=== PATIENT | male | born 1965 | race Caucasian/White ===

== ENCOUNTER 2017-05-01 09:19 | Emergency (ER) | payer MEDICAID ==
[~2017-05-01] VITALS: Ht 175.3 cm; Wt 89.0 kg
[~2017-05-01 09:19] MED LIST: NAPH15DR OP; OPTI5OP6 BOTH EYES
[2017-05-01 09:22] VITALS: Ht 175.3 cm; Wt 89.0 kg
[2017-05-01] MEDS ORDERED: FLUORESCEIN STRIP RIGHT EYE ONE (10:00)
[2017-05-01] MEDS ORDERED: TETRACAINE 0.5% 4 ML OPH RIGHT EYE ONE (10:00)
[2017-05-01] MEDS ORDERED: POLY10DR19 RIGHT EYE (10:34)
--- NOTE | 2017-05-01 10:37 | ERD ---
ER Documentation Chief Complaint Date/Time DATE: 05/01/17 TIME: 10:35 Chief Complaint right eye posible fb, has pain, redness HPI This a 51-year-old male presents to the emergency department today for right eye pain and redness and feeling like something is in his eye. Patient states this started yesterday. States he felt like he got dust or trash in his eye and has been bothering since that time. States his looked at it and thought there was something in his eye. Denies any headache, blurred vision, dizziness or vision loss. ROS All systems reviewed and are negative except as per history of present illness. Medications Home Meds Active Scripts Polymyxin B Sulfate-TMP* (Polymyxin B-TMP Eye Drops*) 10 Ml Drops, 1 DROP RIGHT EYE QID for 7 Days, EA Prov:LESTER SMITH PA-C 05/01/17 Azelastine Hcl (Optivar 0.05% Oph (6ml)) 0.05%-6 Ml Opht, 1 DROP BOTH EYES BID, #1 EACH Prov:JULIO GARCIA DO 11/13/15 Naphazoline Hcl/Phenir Mal (Naphcon-A Eye Drops) 15 Ml Drops, 1 DROP OP QID, #1 BOTTLE Prov:JULIO GARCIA DO 11/13/15 Allergies Allergies: Coded Allergies: No Known Allergy (Unverified , 05/01/17) PMhx/Soc Medical and Surgical Hx: pt denies Medical Hx, pt denies Surgical Hx History of Surgery: No Anesthesia Reaction: No Hx Neurological Disorder: No Hx Respiratory Disorders: No Hx Cardiac Disorders: No Hx Psychiatric Problems: No Hx Miscellaneous Medical Probl: Yes (anxiety) Hx Alcohol Use: No Hx Substance Use: No Hx Tobacco Use: No Smoking Status: Never smoker Physical Exam Vitals Vital Signs Date Time Temp Pulse Resp B/P Pulse Ox O2 Delivery O2 Flow Rate FiO2 05/01/17 09:22 98.1 76 18 132/84 99 Physical Exam Const: No acute distress Head: Atraumatic Eyes: Bilateral conjunctival erythema right eye greater than left. Evidence of bilateral pterygium. PERRLA. EOM intact ENT: Normal External Ears, Nose and Mouth. Neck: Full range of motion..~ No meningismus. Resp: Clear to auscultation bilaterally Cardio: Regular rate and rhythm, no murmurs Skin: No petechiae or rashes Neur: Awake and alert Psych: Normal Mood and Affect Results 24 hrs Current Medications Medications (Trade) Dose Ordered Sig/Nicholas Route PRN Reason Start Time Stop Time Status Last Admin Dose Admin Tetracaine HCl (Tetracaine 0.5% Steri-Unit Monika) 1 drop ONCE ONCE RIGHT EYE 05/01/17 10:00 05/01/17 10:01 DC Fluorescein Sodium (Kfkpz-C-Kfypu) 1 strip ONCE ONCE RIGHT EYE 05/01/17 10:00 05/01/17 10:01 DC Procedures/MDM This is a 51-year-old male who presents the emergency department complaining of right eye pain and redness and feeling a foreign body sensation in his eye. On physical exam patient has bilateral conjunctival erythema however his right is greater than his left. He does have evidence of pterygium in both of his eyes and I suspect that this is more a feeling of dry eyes however I did obtain visual acuity as well as I did do a Jaramillo lamp exam with fluorescein stain Visual acuity right eye 20/30 Left eye 20/25 Jaramillo lamp with fluorescein stain does not show evidence of corneal abrasion or foreign body however I will cover the patient with Polytrim for this. Landen-Pen showed pressures of 25, 24 and 23. Low suspicion for acute narrow angle glaucoma, globe rupture, hyphema. Patient denies any blurred vision, headache, dizziness or vision loss. I did wash the patient's eye out with several vials of saline flushes and he reported feeling much better. I do suspect that this is more dry than conjunctivitis or corneal abrasion. Patient will be given a prescription for Polytrim. He was also instructed to use the Naphcon drops in both of his eyes. I have given him a list of referral for [facility] At this time the patient is stable for discharge and outpatient management. Patient should follow up with their PCP in the next 1-2 days. They may return to the emergency department sooner for any persistent or worsening of symptoms. Patient understood and agreed with the plan. Departure Diagnosis: Primary Impression: Eye problem Condition: Fair Patient Instructions: Pterygium [facility] Usted se ulrich hecho un examen mdico de control que le indica que no est en khalif condicin que requiera tratamiento urgente en el Departamento de Emergencia. Un estudio ms profundo y el tratamiento de ness condicin pueden esperar sin ningn riesgo hasta que usted sea atendida/o en el consultorio de ness mdico o khalif cl maritza. Es responsabilidad suya arreglar khalif akbar para el seguimiento del lorenzo. MANEJO DE CONDICIONES NO URGENTES EN EL FUTURO 1) Si usted tiene un mdico de atencin primaria: Usted debera llamar a ness mdico de atencin primaria antes de venir al departamento de emergencia. Despus de las horas de consultorio, ness doctor o ness asociado/a est disponible por telfono. El mdico o enfermero de rosmery en el servicio telefnico puede asesorarle por martha medio para atender el problema, o lorenzo contrario se puede programar khalif akbar. 2) Si usted no tiene un mdico de atencin primaria: Llame al mdico o clnica de referencia que aparece abajo brannon las horas de consultorio para hacer khalif akbar para que le vean. CLINICAS: [facility] [phone] [facility] [phone] [facility] [phone] [address] [place] [id number] [phone] [place] [id number] [phone] [facility] [phone] [facility] Hours: Mon - Fri 9:00 AM - 5:00 PM Additional Instructions: Llame al doctor MAANA y josué khalif AKBAR PARA DENTRO DE 1-2 PRADO.Dgale a la secretaria que nosotros le instruimos hacer esta akbar.Avise o llame si ness condicin se empeora antes de la akbar. Regresa aqui si peor o no mejor. Use antibiotic as prescribed Make an appointment at [facility] Continue taking your Naphcon drops as needed for dry eyes for both eyes LESTER SMITH PA-C May 01, 2017 10:37
[2017-05-01 10:48] VITALS: BP 128/78; PULSE 66; RESP 18; TEMP 98.1
== END 2017-05-01 10:48 | disposition home or self-care (01) ==
LOC: FTE 09:19
DX: H57.8 Other specified disorders of eye and adnexa (principal)
CPT/HCPCS: 99283

== ENCOUNTER 2017-10-22 13:08 | Emergency (ER) | END 2017-10-22 14:13 | disposition home or self-care (01) ==

== ENCOUNTER 2018-11-02 10:42 | Emergency (ER) | payer MEDICAID ==
[~2018-11-02] VITALS: Ht 177.8 cm; Wt 94.0 kg
[~2018-11-02 10:42] MED LIST changes: +FLUT9.9S NASAL; +IBUP800T48 PO; +POLY10DR19 RIGHT EYE; +PSEU30TA38 PO
[2018-11-02 10:45] VITALS: BP 136/89; PULSE 96; RESP 20; Ht 177.8 cm; Wt 94.0 kg
[2018-11-02] MEDS ORDERED: KETOROLAC 60 MG INJ IM STA (11:19)
[2018-11-02] MEDS ORDERED: IBUP-1542 PO (11:20)
[2018-11-02] MEDS ORDERED: AMOX500C2 PO (11:20)
--- NOTE | 2018-11-02 11:23 | ERD ---
ER Documentation Chief Complaint Chief Complaint pt bib family with s/o sore throat for 2 days HPI 53-year-old male presents with sore throat for last 3 days. Difficulty swallowing. Denies fevers. Denies cough, vomiting, abdominal pain. He has taken some amox[id number] 1 [place] without relief. ROS All systems reviewed and are negative except as per history of present illness. Medications Home Meds Active Scripts Amoxicillin* (Amoxicillin*) 500 Mg Cap, 500 MG PO TID for 10 Days, CAP Prov:CHEMA FLEMING MD 11/02/18 Ibuprofen* (Motrin*) 600 Mg Tab, 600 MG PO Q6, #20 TAB Prov:CHEMA FLEMING MD 11/02/18 Ibuprofen* (Motrin*) 800 Mg Tab, 800 MG PO Q6, #30 TAB Prov:SHAHZAD CHANEL PA-C 10/22/17 Fluticasone Propionate (Flonase Allergy Relief) 9.9 Ml [place].susp, 1 SPRAY NASAL DAILY, #1 BOTTLE TO EACH NOSTRIL Prov:SHAHZAD CHANEL PA-C 10/22/17 Pseudoephedrine Hcl* (Pseudoephedrine Hcl*) 30 Mg Tablet, 30 MG PO Q6 PRN for CONGESTION, #30 TAB Prov:SHAHZAD CHANEL PA-C 10/22/17 Polymyxin B Sulfate-TMP* (Polymyxin B-TMP Eye Drops*) 10 Ml Drops, 1 DROP RIGHT EYE QID for 7 Days, EA Prov:LESTER SMITH PA-C 05/01/17 Azelastine Hcl (Optivar 0.05% Oph (6ml)) 0.05%-6 Ml Opht, 1 DROP BOTH EYES BID, #1 EACH Prov:JULIO GARCIA DO 11/13/15 Naphazoline Hcl/Phenir Mal (Naphcon-A Eye Drops) 15 Ml Drops, 1 DROP OP QID, #1 BOTTLE Prov:JULIO GARCIA DO 11/13/15 Allergies Allergies: Coded Allergies: No Known Allergy (Unverified , 05/01/17) PMhx/Soc Medical and Surgical Hx: pt denies Surgical Hx History of Surgery: No Anesthesia Reaction: No Hx Neurological Disorder: No Hx Respiratory Disorders: No Hx Cardiac Disorders: No Hx Psychiatric Problems: No Hx Miscellaneous Medical Probl: Yes (anxiety) Hx Alcohol Use: No Hx Substance Use: No Hx Tobacco Use: No Smoking Status: Never smoker FmHx Family History: No diabetes, No coronary disease, No other Physical Exam Vitals Vital Signs Date Temp Pulse Resp B/P (MAP) Pulse Ox O2 O2 Flow FiO2 Time Delivery Rate 11/02/18 98.3 96 20 136/89 98 10:45 (105) Physical Exam Const: No acute distress Head: Atraumatic Eyes: Normal Conjunctiva ENT: Normal External Ears, Nose and Mouth. 3+ tonsils with slight exudate. Tender anterior cervical lymphadenitis. Airway patent. Uvula midline. Neck: Full range of motion. No meningismus. Resp: Clear to auscultation bilaterally Cardio: Regular rate and rhythm, no murmurs Abd: Soft, non tender, non distended. Normal bowel sounds Skin: No petechiae or rashes Back: No midline or flank tenderness Ext: No cyanosis, or edema Neur: Awake and alert Psych: Normal Mood and Affect Results 24 hrs Current Medications Medications Dose Sig/Nicholas Start Time Status Last (Trade) Ordered Route PRN Stop Time Admin Dose Reason Admin Ketorolac 60 mg ONCE STAT 11/02/18 Tromethamine IM 11:19 (Toradol) 11/02/18 11:20 10 mg ONCE ONCE 11/02/18 Dexamethasone IM 11:30 (Decadron) 11/02/18 11:31 Procedures/MDM Patient was given Toradol 60 mg IM, Decadron 10 mg IM for acute pain and lymphadenitis. Patient signs and symptoms of acute exudative pharyngitis. We will treat empirically with amoxicillin, ibuprofen, fluids, rest, return precautions for difficulty swallowing, difficult to breathing, new or worsening symptoms. The patient was stable with no new complaints during the ER course. Clinically, there is no current evidence to suggest meningitis, sepsis, acute abdomen, pneumonia, stroke, acute coronary syndrome, pulmonary embolism, aortic dissection or any other emergent condition appearing to require further evaluation or hospitalization. Patient counseled regarding my diagnostic impression and care plan. Prior to discharge all questions answered. Pt agrees with treatment plan and understands strict return precautions. Pt is instructed to follow up with primary care provider within 24-48 hours. Precautionary instructions provided including instructions to return to the ER if not improving or for any worsening or changing symptoms or concerns. Departure Diagnosis: Primary Impression: Sore throat Condition: Stable Patient Instructions: Pharyngitis, Strep (Presumed) Additional Instructions: . Cheque otro vez con ness doctor primario en el proximo real or regresa para mas o nueva simptomas. CHEMA FLEMING MD Nov 02, 2018 11:23
[2018-11-02] MEDS ORDERED: DEXAMETHASONE 10 MG/ML 1 ML INJ IM ONE (11:30)
== END 2018-11-02 11:56 | disposition home or self-care (01) ==
LOC: FTE 10:42
DX: J02.9 Acute pharyngitis, unspecified (principal)
CPT/HCPCS: 96372; J1100; J1885; Z7502

== ENCOUNTER 2018-11-05 18:32 | Emergency (ER) | payer MEDICAID ==
[~2018-11-05] VITALS: Ht 175.3 cm; Wt 110.0 kg
[~2018-11-05 18:32] MED LIST changes: +AMOX500C2 PO; +IBUP-1542 PO
[2018-11-05 18:48] VITALS: Ht 175.3 cm; Wt 110.0 kg
[2018-11-05] MEDS ORDERED: PANTOPRAZOLE 40 MG INJ IV STA (21:20)
--- NOTE | 2018-11-05 22:01 | ERD ---
ER Documentation Chief Complaint Chief Complaint AP WITH VOMITING & DARK STOOL X 1 HPI 53-year-old male presenting with complaints of epigastric abdominal pain since yesterday. He has had associated nonbloody and nonbilious vomiting. Overnight, he had diarrhea that was dark in color. His symptoms have since improved but he is very concerned about the dark stools. His vomiting has resolved and he denies any nausea at this time. His epigastric pain is an aching pain, nonradiating, 8/10, with no alleviating or exacerbating factors and with no fever or chills. He does admit to taking amoxicillin for a throat infection he was diagnosed with here a few days ago. He has also been taking ibuprofen every 6 hours for his throat pain. ROS All systems reviewed and are negative except as per history of present illness. Medications Home Meds Active Scripts Omeprazole* (Omeprazole*) 40 Mg Capsule.dr, 40 MG PO DAILY, #10 CAP Prov:CHRISTIE HARRISON MD 11/05/18 Amoxicillin* (Amoxicillin*) 500 Mg Cap, 500 MG PO TID for 10 Days, CAP Prov:CHEMA FLEMING MD 11/02/18 Ibuprofen* (Motrin*) 600 Mg Tab, 600 MG PO Q6, #20 TAB Prov:CHEMA FLEMING MD 11/02/18 Discontinued Scripts Ibuprofen* (Motrin*) 800 Mg Tab, 800 MG PO Q6, #30 TAB Prov:SHAHZAD CHANEL PA-C 10/22/17 Fluticasone Propionate (Flonase Allergy Relief) 9.9 Ml [place].susp, 1 SPRAY NASAL DAILY, #1 BOTTLE TO EACH NOSTRIL Prov:SHAHZAD CHANEL PA-C 10/22/17 Pseudoephedrine Hcl* (Pseudoephedrine Hcl*) 30 Mg Tablet, 30 MG PO Q6 PRN for CONGESTION, #30 TAB Prov:SHAHZAD CHANEL PA-C 10/22/17 Polymyxin B Sulfate-TMP* (Polymyxin B-TMP Eye Drops*) 10 Ml Drops, 1 DROP RIGHT EYE QID for 7 Days, EA Prov:LESTER SMITH PA-C 05/01/17 Azelastine Hcl (Optivar 0.05% Oph (6ml)) 0.05%-6 Ml Opht, 1 DROP BOTH EYES BID, #1 EACH Prov:JULIO GARCIA DO 11/13/15 Naphazoline Hcl/Phenir Mal (Naphcon-A Eye Drops) 15 Ml Drops, 1 DROP OP QID, #1 BOTTLE Prov:JULIO GARCIA DO 11/13/15 Allergies Allergies: Coded Allergies: No Known Allergy (Unverified , 11/05/18) PMhx/Soc Medical and Surgical Hx: pt denies Surgical Hx History of Surgery: No Anesthesia Reaction: No Hx Neurological Disorder: No Hx Respiratory Disorders: No Hx Cardiac Disorders: No Hx Psychiatric Problems: No Hx Miscellaneous Medical Probl: Yes (ANXIETY) Hx Alcohol Use: No Hx Substance Use: No Hx Tobacco Use: No Smoking Status: Never smoker FmHx Family History: No diabetes Physical Exam Vitals Vital Signs Date Temp Pulse Resp B/P (MAP) Pulse Ox O2 O2 Flow FiO2 Time Delivery Rate 11/05/18 78 20 108/79 100 Room Air 23:15 (89) 11/05/18 77 20 122/87 94 Room Air 21:52 (99) 11/05/18 97.5 90 18 125/72 98 18:48 (89) Physical Exam Const: No acute distress, well-appearing, nontoxic Head: Atraumatic Eyes: Normal Conjunctiva ENT: Normal External Ears, Nose and Mouth. Neck: Full range of motion. No meningismus. Resp: Clear to auscultation bilaterally Cardio: Regular rate and rhythm, no murmurs Abd: Soft, mild epigastric tenderness to deep palpation with no rebound or guarding, non distended. No peritonitis. Normal bowel sounds Skin: No petechiae or rashes Back: No midline or flank tenderness Ext: No cyanosis, or edema Neur: Awake and alert Psych: Normal Mood and Affect Result Diagram: 11/05/18210911/05/182109 Results 24 hrs Laboratory Tests Test 11/05/18 21:10 White Blood Count 10.3 10^3/ul Red Blood Count 6.20 10^6/ul Hemoglobin 17.8 g/dl Hematocrit 53.2 % Mean Corpuscular Volume 85.8 fl Mean Corpuscular Hemoglobin 28.7 pg Mean Corpuscular Hemoglobin Concent 33.5 g/dl Red Cell Distribution Width 13.3 % Platelet Count 266 10^3/UL Mean Platelet Volume 10.0 fl Immature Granulocytes % 0.800 % Neutrophils % 62.6 % Lymphocytes % 21.4 % Monocytes % 11.6 % Eosinophils % 3.0 % Basophils % 0.6 % Nucleated Red Blood Cells % 0.0 /100WBC Immature Granulocytes # 0.080 10^3/ul Neutrophils # 6.5 10^3/ul Lymphocytes # 2.2 10^3/ul Monocytes # 1.2 10^3/ul Eosinophils # 0.3 10^3/ul Basophils # 0.1 10^3/ul Nucleated Red Blood Cells # 0.0 10^3/ul Prothrombin Time 13.6 Sec Prothrombin Time Ratio 1.1 INR International Normalized Ratio 1.03 Activated Partial Thromboplast Time 28.6 Sec Sodium Level 139 mmol/L Potassium Level 3.5 mmol/L Chloride Level 97 mmol/L Carbon Dioxide Level 33 mmol/L Anion Gap 9 Blood Urea Nitrogen 18 mg/dl Creatinine 0.83 mg/dl Est Glomerular Filtrat Rate mL/min > 60 mL/min Glucose Level 97 mg/dl Calcium Level 8.9 mg/dl Total Bilirubin 0.2 mg/dl Direct Bilirubin 0.00 mg/dl Indirect Bilirubin 0.2 mg/dl Aspartate Amino Transf (AST/SGOT) 28 IU/L Alanine Aminotransferase (ALT/SGPT) 46 IU/L Alkaline Phosphatase 105 IU/L Total Protein 7.9 g/dl Albumin 4.5 g/dl Globulin 3.40 g/dl Albumin/Globulin Ratio 1.32 Current Medications Medications Dose Sig/Nicholas Start Time Status Last (Trade) Ordered Route PRN Stop Time Admin Dose Reason Admin 40 mg ONCE STAT 11/05/18 DC 11/05/18 Pantoprazole IV 21:20 21:24 (Protonix 11/05/18 21:21 Iv) Procedures/MDM EMERGENT LABS AND DIAGNOSTIC STUDIES: Lab Results above were reviewed and interpreted by me. CBC: no anemia or evidence of infection CMP: No evidence of electrolyte abnormality, renal failure, hypoglycemia, liver failure, or biliary obstruction 12-lead EKG was interpreted by Madeleine Harrison MD: Normal Sinus Rhythm Normal axis Normal intervals No acute ST or T wave changes suggestive of acute ischemia or STEMI. Initial Nursing notes reviewed. Previous Medical Records requested via the Electronic Health Record. EMERGENCY DEPARTMENT COURSE / MEDICAL DECISION MAKING: Patient is presenting with signs and symptoms of possible upper GI bleed likely secondary to NSAID induced gastritis versus peptic ulcer. He is hemodynamically stable and well-appearing on exam with no signs of acute surgical abdomen. I doubt perforated viscus. He was treated with IV fluids and PPI. Upon reevaluation, patient remained stable with a relatively benign abdominal exam. I advised he stop using NSAIDs altogether. Diet precautions were also discussed. I will prescribe him omeprazole and have him follow-up with his [facility] care doctor within the next 2-3 days. Strict return precautions discussed. Patient's blood pressure was elevated (>120/80) but appears stable without evidence of hypertensive emergency or urgency. The patient was counseled about the risks of hypertension and urged to pursue outpatient monitoring and therapy within a week with their primary care physician. Departure Diagnosis: Primary Impression: Abdominal pain Abdominal location: epigastric Qualified Codes: R10.13 - Epigastric pain Additional Impression: Upper GI bleed Condition: Stable CHRISTIE HARRISON MD Nov 05, 2018 22:01
[2018-11-05] MEDS ORDERED: OMEP40CA6 PO (22:02)
[2018-11-05 23:15] VITALS: BP 108/79; PULSE 78; RESP 20
== END 2018-11-05 23:14 | disposition home or self-care (01) ==
LOC: E/R 18:32
DX: K92.2 Gastrointestinal hemorrhage, unspecified (principal)
CPT/HCPCS: 36415; 80053; 85025; 85610; 85730; 86850; 86900; 86901; 93005; 96374; C9113; Z7502

== ENCOUNTER 2018-12-28 09:24 | Emergency (ER) | payer MEDICAID ==
[~2018-12-28] VITALS: Ht 180.3 cm; Wt 104.0 kg
[~2018-12-28 09:24] MED LIST changes: -FLUT9.9S NASAL; -IBUP800T48 PO; -NAPH15DR OP; +OMEP40CA6 PO; -OPTI5OP6 BOTH EYES; -POLY10DR19 RIGHT EYE; -PSEU30TA38 PO
--- NOTE | 2018-12-28 09:27 | ERD ---
ER Documentation Chief Complaint Chief Complaint HPI This is a 53-year-old male who presents for evaluation of a likely seizure episo de. He has no prior history of seizures, he has been taking an [id number] sleep medication, and he intermittently takes medication for anxiety, but otherwise he has no history of substance abuse. He has not had a fever or head trauma, he came and brought in by EMS, per the report, his witnessed but a 2-minute seizure episode that resolved by the time EMS came, he initially appeared postictal, however was combative with EMS, requiring medical sedation with Versed. Subsequently returned to his mental baseline, and does remember being agitated when he had a root initially recovered from his postictal period, and EMS had been surrounding him, but does not recall subsequent events after being given Versed for the seizure episode itself. ROS All systems reviewed and are negative except as per history of present illness. Medications Home Meds Discontinued Scripts Omeprazole* (Omeprazole*) 40 Mg Capsule., 40 MG PO DAILY, #10 CAP Prov:CHRISTIE JONES MD 11/05/18 Amoxicillin* (Amoxicillin*) 500 Mg Cap, 500 MG PO TID for 10 Days, CAP Prov:CHEMA FLEMING MD 11/02/18 Ibuprofen* (Motrin*) 600 Mg Tab, 600 MG PO Q6, #20 TAB Prov:CHEMA FLEMING MD 11/02/18 Allergies Allergies: Coded Allergies: Penicillins (Verified Allergy, Unknown, 12/28/18) PMhx/Soc History of Surgery: No Anesthesia Reaction: No Hx Neurological Disorder: No Hx Respiratory Disorders: No Hx Cardiac Disorders: No Hx Psychiatric Problems: No Hx Miscellaneous Medical Probl: Yes (ANXIETY) Hx Alcohol Use: No Hx Substance Use: No Hx Tobacco Use: No Physical Exam Vitals Vital Signs Date Temp Pulse Resp B/P (MAP) Pulse Ox O2 O2 Flow FiO2 Time Delivery Rate 12/28/18 98.2 113 18 108/78 96 Nasal 3.0 10:26 (88) Cannula 12/28/18 Nasal 4 09:47 Cannula 12/28/18 98.3 134 20 108/78 100 09:29 (88) Physical Exam Const: Initially presented, asleep, likely related to medical sedation. Arrived on nonrebreather. Head: Atraumatic Eyes: Normal Conjunctiva ENT: Normal External Ears, Nose and Mouth. Neck: Full range of motion. No meningismus. Resp: Clear to auscultation bilaterally Cardio: Regular rate and rhythm, no murmurs Abd: Soft, non tender, non distended. Normal bowel sounds Skin: No petechiae or rashes Back: No midline or flank tenderness Ext: No cyanosis, or edema Neur: Sedated initially. Psych: Unable to Result Diagram: 12/28/1892612/28/18926 Results 24 hrs Laboratory Tests Test 12/28/18 09:27 12/28/18 09:37 12/28/18 09:42 12/28/18 10:29 White Blood Count 10.0 10^3/ul Red Blood Count 5.63 10^6/ul Hemoglobin 16.0 g/dl Hematocrit 49.5 % Mean Corpuscular 87.9 fl Volume Mean Corpuscular 28.4 pg Hemoglobin Mean Corpuscular 32.3 g/dl Hemoglobin Concen t Red Cell 12.9 % Distribution Width Platelet Count 207 10^3/UL Mean Platelet 10.3 fl Volume Immature 0.900 % Granulocytes % Neutrophils % 47.2 % Lymphocytes % 30.7 % Monocytes % 5.9 % Eosinophils % 14.5 % Basophils % 0.8 % Nucleated Red 0.0 /100WBC Blood Cells % Immature 0.090 10^3/ul Granulocytes # Neutrophils # 4.7 10^3/ul Lymphocytes # 3.1 10^3/ul Monocytes # 0.6 10^3/ul Eosinophils # 1.5 10^3/ul Basophils # 0.1 10^3/ul Nucleated Red 0.0 10^3/ul Blood Cells # Prothrombin Time 12.8 Sec Prothrombin Time 1.0 Ratio INR International 0.95 Normalized Ratio Sodium Level 138 mmol/L Potassium Level 4.4 mmol/L Chloride Level 101 mmol/L Carbon Dioxide 17 mmol/L Level Anion Gap 20 Blood Urea 12 mg/dl Nitrogen Creatinine 0.86 mg/dl Est Glomerular > 60 mL/min Filtrat Rate mL/min Glucose Level 152 mg/dl Lactic Acid Level 8.8 mmol/L Calcium Level 9.7 mg/dl Total Bilirubin 0.4 mg/dl Direct Bilirubin 0.00 mg/dl Indirect 0.4 mg/dl Bilirubin Aspartate Amino 29 IU/L Transf (AST/SGOT) Alanine 25 IU/L Aminotransferase (ALT/SGPT) Alkaline 93 IU/L Phosphatase Troponin I < 0.012 ng/ml Total Protein 7.5 g/dl Albumin 4.7 g/dl Globulin 2.80 g/dl Albumin/Globulin 1.67 Ratio Salicylates Level < 1.0 mg/dl Acetaminophen < 10.0 ug/ml Level Ethyl Alcohol < 10.0 mg/dl Level Bedside Glucose 151 mg/dL Urine Color YELLOW Urine Clarity CLEAR Urine pH 5.0 Urine Specific 1.015 [place] Urine Ketones NEGATIVE mg/dL Urine Nitrite NEGATIVE mg/dL Urine Bilirubin NEGATIVE mg/dL Urine NEGATIVE mg/dL Urobilinogen Urine Leukocyte NEGATIVE Mehrdad/ul Esterase Urine Microscopic 0 /HPF RBC Urine Microscopic 1 /HPF WBC Urine Mucus FEW /HPF Urine Hemoglobin NEGATIVE mg/dL Urine Glucose NEGATIVE mg/dL Urine Total 1+ mg/dl Protein POC Venous 10.0 mmol/L Lactate Urine Opiates Negative Screen Urine Negative Barbiturates Urine Negative Amphetamines Screen Urine Positive Benzodiazepines Screen Urine Cocaine Negative Screen Urine Negative Cannabinoids Bedside Urine pH 5.5 (LAB) Bedside Urine 1+ Protein (LAB) Bedside Urine Negative Glucose (UA) Bedside Urine Negative Ketones (LAB) Bedside Urine Trace-lysed Blood Bedside Urine Negative Nitrite (LAB) Bedside Urine Negative Leukocyte Esteras e (L Test 12/28/18 12:22 POC Venous 2.6 mmol/L Lactate Procedures/MDM 53-year-old male presents for evaluation of new onset seizure. As noted above he initially presented medically sedated, he subsequently recovered completely neurologically, and on second evaluation he was alert and oriented x4, and ambulatory. His work-up was remarkable for an elevated lactate, patient no signs of infection in the ED, CT brain was also negative, and his lactate down trended with IV fluids. I suspect the initial lactic acidosis was related to seizure activity, patient was instructed not to drive, and charge nurse Dwight filed report with DMV. Patient will follow-up with primary care doctor, with possible neurology referral, at discharge she was in no acute distress. Departure Diagnosis: Primary Impression: Seizure disorder Condition: Stable SAMY KHAN MD Dec 28, 2018 09:27
[2018-12-28 09:29] VITALS: Ht 180.3 cm; Wt 104.0 kg
[2018-12-28 14:12] VITALS: BP 121/89; PULSE 92; RESP 18
== END 2018-12-28 14:16 | disposition home or self-care (01) ==
LOC: E/R 09:24
DX: G40.909 Epilepsy, unspecified, not intractable, without status epilepticus (principal); R40.2132 Coma scale, eyes open, to sound, at arrival to emergency department; R40.2252 Coma scale, best verbal response, oriented, at arrival to emergency department; R40.2352 Coma scale, best motor response, localizes pain, at arrival to emergency department
CPT/HCPCS: 36415; 70450; 71045; 80053; 80307; 81001; 82962; 83605; 84484; 85025; 85610; 87040; 93005; Z7502; 81003